=== PATIENT | male | born 2000 | race Caucasian/White ===

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

== ENCOUNTER 2020-11-30 18:32 | Emergency (ER) | payer SELFPAY ==
[~2020-11-30] VITALS: Ht 180.3 cm; Wt 90.7 kg
[~2020-11-30 18:32] MED LIST changes: -TRAM50TA2 PO; +TRM50T PO
--- NOTE | 2020-11-30 18:50 | ED Upper Extremity ---
General Chief Complaint: Upper Extremity Stated Complaint: R HAND PAIN/SWELLING Source: patient Exam Limitations: no limitations History of Present Illness Date Seen by Provider: Nov 30, 2020 Time Seen by Provider: 18:50 Initial Comments This is a well appearing 20 yo male who reports pain and swelling to the back of his right hand after getting it caught in a car door 4 days ago. States pain has persisted despite Tylenol/Ibuprofen. States he is still able to open and close his hand, but this elicits severe pain. No other injuries reported. Allergies and Home Medications Allergies Coded Allergies: No Known Drug Allergies (Unverified , 06/20/10) Home Medications Hydrocodone/Acetaminophen 1 Each Tablet, 1 EACH PO Q6H PRN for PAIN-SEVERE (8- 10) Prescribed by: RITA NAVARRETE on 11/30/201940 Patient Home Medication List Home Medication List Reviewed: Yes Review of Systems Constitutional: no symptoms reported EENTM: no symptoms reported Respiratory: no symptoms reported Cardiovascular: no symptoms reported Gastrointestinal: no symptoms reported Genitourinary: no symptoms reported Musculoskeletal: see HPI Skin: no symptoms reported Psychiatric/Neurological: No Symptoms Reported Past Wblnwkg-Pxebon-Dpjzja Hx Patient Social History Recent Hopitalizations: No Immunizations Up To Date PED Vaccines UTD: Yes Seasonal Allergies Seasonal Allergies: No Past Medical History Surgeries: No Respiratory: No Cardiac: No Neurological: No Reproductive Disorders: No Sexually Transmitted Disease: No HIV/AIDS: No Musculoskeletal: No Endocrine: No Cancer: No Psychosocial: No Integumentary: No Blood Disorders: No Family Medical History No Pertinent Family Hx Physical Exam Vital Signs Vital Signs - First Documented 11/30/20 18:35 Temp 38.3 Pulse 89 Resp 16 B/P (MAP) 147/91 (109) Pulse Ox 96 O2 Delivery Room Air Capillary Refill : Height, Weight, BMI Height: 5'9.00" Weight: 140lbs. oz. 63.953687gb; 14.06 BMI Method:Stated General Appearance: WD/WN, no apparent distress HEENT: PERRL/EOMI, normal ENT inspection Neck: full range of motion, normal inspection Cardiovascular: regular rate, rhythm, no murmur Respiratory: lungs clear, normal breath sounds Hand: normal inspection, bone tenderness (left MCP), soft tissue tenderness, swelling Neurologic/Tendon: normal sensation, normal motor functions, normal tendon functions, responds to pain Neurologic/Psychiatric: no motor/sensory deficits, alert, normal mood/affect, oriented x 3 Skin: normal color, warm/dry Progress/Results/Core Measures Results/Orders My Orders Orders - RITA NAVARRETE APRN Hand, Right, 3 Views (11/30/20 18:49) Forearm, Right, 2 Views (11/30/20 18:49) Hydrocodone/Apap 5/325 Tablet (Lortab 5 (11/30/20 19:30) Medications Given in ED Vital Signs/I&O Progress Progress Note : Progress Note Pt examined. No acute distress. Radiographs of left hand and forearm ordered. Xrays show non displaced fracture at the base of the left 5th metacarpal. Placed in velcro ulnar gutter splint. Neurovascular intact pre and post splint placement. Discussed having close follow up with ortho provider of choice. Phone numbers provided for local surgeons. He verbalized understanding. Orders placed for Lortab 5/325mg for pain. Diagnostic Imaging Diagonstic Imaging: Xray Plain Films/CT/US/NM/MRI: hand Comments NAME: JANUARY SINHA MED REC#: [id number] PT STATUS: REG ER : 2000 PHYSICIAN: RITA NAVARRETE APRN ADMIT DATE: 11/30/20/ER Signed Date of Exam:11/30/20 HAND, RIGHT, 3 VIEWS INDICATION: Slammed right hand in truck door. FINDINGS: 3 views of the right hand demonstrate mildly comminuted but nondisplaced fracture through the base of the 5th metacarpal. There is intra-articular extension. IMPRESSION: There is intra-articular extension of the fracture through the base of the right 5th metacarpal. Dictated by: Dictated on workstation # [id number] Dict: 11/30/201906 Trans: 11/30/201912 [facility] [id number] Interpreted by: DAGMAR STONE MD Electronically signed by: DAGMAR STONE MD 11/30/201912 Reviewed: Reviewed by Me Diagonstic Imaging: Xray Plain Films/CT/US/NM/MRI: forearm Comments NAME: JANUARY SINHA MED REC#: [id number] PT STATUS: REG ER : 2000 PHYSICIAN: RITA NAVARRETE PATIENT ACCOUNTING REPRESENTATIVE ADMIT DATE: 11/30/20/ER Signed Date of Exam:11/30/20 FOREARM, RIGHT, 2 VIEWS INDICATION: Slammed right hand in truck door, right forearm pain FINDINGS: Two views of the right forearm demonstrate normal ossification. No fracture is present. IMPRESSION: Normal right forearm. Dictated by: Dictated on workstation # [id number] Dict: 11/30/201905 Trans: 11/30/201912 [facility] [id number] Interpreted by: DAGMAR STONE MD Electronically signed by: DAGMAR STONE MD 11/30/201912 Departure Impression Primary Impression: Nondisplaced fracture of base of fifth metacarpal bone, right hand, initial encounter for closed fracture Disposition: HOME, SELF-CARE Condition: Improved Departure-Patient Inst. Decision time for Depature: 19:39 Referrals: [facility] (PCP/Family) Primary Care Physician Patient Instructions: Hand Fracture (DC) Add. Discharge Instructions: Plan: 1. Discharge home. 2. Rest, ice 20 minutes at a time every couple of hours for swelling and pain, use sal wrap over the next 3 days, and keep elevated above your heart as much as possible. The most swelling will occur over the next 48-72 hours. 3. May take Tylenol or Ibuprofen as needed for pain per package directions. Do not take more than directed. Use Hydrocodone as needed for breakthrough pain every 6 hours. 4. Follow up with Ortho provider of your choice. Local providers are Dr. Tejeda and Dr. Escobar. Call for appointment : [phone] All discharge instructions reviewed with patient and/or family. Voiced understanding. Scripts Hydrocodone/Acetaminophen (Hydrocodone-Acetamin 5-325 mg) 1 Each Tablet 1 EACH PO Q6H PRN for PAIN-SEVERE (8-10), #10 TAB 0 Refills Prov: RITA NAVARRETE PATIENT ACCOUNTING REPRESENTATIVE 11/30/20 Copy Copies To 1: JOAO TEJEDA MD, STORMY D PATIENT ACCOUNTING REPRESENTATIVE Nov 30, 2020 18:50
--- NOTE | 2020-11-30 19:09 | Diagnostic Imaging Report ---
INDICATION: Slammed right hand in truck door, right forearm pain FINDINGS: Two views of the right forearm demonstrate normal ossification. No fracture is present. IMPRESSION: Normal right forearm. Dictated by: Dictated on workstation # [id number]
--- NOTE | 2020-11-30 19:11 | Diagnostic Imaging Report ---
INDICATION: Slammed right hand in truck door. FINDINGS: 3 views of the right hand demonstrate mildly comminuted but nondisplaced fracture through the base of the 5th metacarpal. There is intra-articular extension. IMPRESSION: There is intra-articular extension of the fracture through the base of the right 5th metacarpal. Dictated by: Dictated on workstation # [id number]
[2020-11-30] MEDS ORDERED: HYDROcodone/APAP 5 MG/325 MG (LORTAB) TAB PO ONE (19:30)
[2020-11-30] MEDS ORDERED: ACHD5005 PO (19:41)
[2020-11-30 19:43] VITALS: BP 135/90
== END 2020-11-30 19:45 | disposition home or self-care (01) ==
LOC: EDUNIT# 18:32 → ER 18:35
DX: S62.346A Nondisplaced fracture of base of fifth metacarpal bone, right hand, initial encounter for closed fracture (principal); W23.1XXA Caught, crushed, jammed, or pinched between stationary objects, initial encounter
CPT/HCPCS: 73090; 73130

== ENCOUNTER 2021-03-15 13:15 | Emergency (ER) | payer SELFPAY ==
[~2021-03-15] VITALS: Ht 157.5 cm; Wt 83.9 kg
[~2021-03-15 13:15] MED LIST changes: +ACHD5005 PO
[2021-03-15 13:20] VITALS: BP 140/96
[2021-03-15] MEDS ORDERED: ACHD5005 PO (13:30)
[2021-03-15] MEDS ORDERED: NEOM10SO8 OT (13:30)
--- NOTE | 2021-03-15 13:30 | ED EENT ---
History of Present Illness General Chief Complaint: Ear Problems Stated Complaint: L EAR PAIN Source: patient Exam Limitations: no limitations History of Present Illness Date Seen by Provider: March 15, 2021 Time Seen by Provider: 13:25 Initial Comments Left earache for 48 hours. No cough no sore throat no other symptoms. Timing/Duration: abrupt Severity: moderate Location: ear (L) Associated Symptoms: denies symptoms Allergies and Home Medications Allergies Coded Allergies: No Known Drug Allergies (Unverified , 06/20/10) Home Medications Hydrocodone/Acetaminophen 1 Each Tablet, 1 EACH PO Q6H PRN for PAIN-SEVERE (8- 10) Prescribed by: RITA NAVARRETE on 11/30/201940 Patient Home Medication List Home Medication List Reviewed: Yes Review of Systems Review of Systems Constitutional: see HPI Eyes: No Symptoms Reported Ears: See HPI, Pain Nose: no symptoms reported Mouth: no symptoms reported Throat: no symptoms reported Respiratory: no symptoms reported Cardiovascular: no symptoms reported Musculoskeletal: no symptoms reported Skin: no symptoms reported Past Tqvzihd-Jrvasl-Xqzusi Hx Patient Social History 2nd Hand Smoke Exposure: No Recent Hopitalizations: No Immunizations Up To Date PED Vaccines UTD: Yes Seasonal Allergies Seasonal Allergies: No Past Medical History Surgeries: No Respiratory: No Cardiac: No Neurological: No Reproductive Disorders: No Sexually Transmitted Disease: No HIV/AIDS: No Genitourinary: No Gastrointestinal: No Musculoskeletal: No Endocrine: No HEENT: No Cancer: No Psychosocial: No Integumentary: No Blood Disorders: No Family Medical History No Pertinent Family Hx Physical Exam Height, Weight, BMI Height: 5'9.00" Weight: 140lbs. oz. 63.362113tc; 27.00 BMI Method:Stated General Appearance: WD/WN, no apparent distress Eyes: bilateral eye normal inspection, bilateral eye PERRL, bilateral eye EOMI Ears: right ear canal normal, right ear TM normal; left ear other (Left external ear canal is swollen and slightly erythematous. Unable to visualize the tympanic membrane. Very tender to touch.); bilateral ear auricle normal Mouth/Throat: normal mouth inspection, pharynx normal Neck: full range of motion Cardiovascular: regular rate, rhythm, no murmur Respiratory: no respiratory distress, no accessory muscle use Gastrointestinal: normal bowel sounds, non tender, soft Neurologic/Psychiatric: alert, normal mood/affect, oriented x 3 Skin: normal color, warm/dry Departure Impression Primary Impression: Otitis externa Disposition: 01 HOME, SELF-CARE Condition: Stable Departure-Patient Inst. Decision time for Depature: 13:26 [facility] ([facility]Family) Primary Care Physician Patient Instructions: Outer Ear Infection (DC) Add. Discharge Instructions: Pain medication as directed. Antibiotic drops to keep the ear dry. Follow-up with your doctor next week for recheck. All discharge instructions reviewed with patient and/or family. Voiced understanding. Scripts Naproxen (Naprosyn) 500 Mg Tablet 500 MG PO BID PRN for PAIN-SEVERE (8-10), #30 TAB 0 Refills Prov: MARVIN SANTOS APRN 03/15/21 Neomycin/Polymyxin B Sulf/Hc (Ykvesqmf-Zauzotipf-Gp Ear Soln) 10 Ml Solution 4 DROPS OT TID for 7 Days, #1 EA Prov: MARVIN SANTOS APRN 03/15/21 Hydrocodone/Acetaminophen (Hydrocodone-Acetamin 5-325 mg) 1 Each Tablet 1 TAB PO Q4H PRN for PAIN-MODERATE (5-7), #10 TAB Prov: MARVIN SANTOS APRN 03/15/21 MARVIN SANTOS APRN March 15, 2021 13:30
[2021-03-15] MEDS ORDERED: NAPR-1071 PO (13:32)
== END 2021-03-15 13:40 | disposition home or self-care (01) ==
LOC: EDUNIT# 13:15 → ER 13:17
DX: H60.92 Unspecified otitis externa, left ear (principal)
CPT/HCPCS: 99282

== ENCOUNTER → 2023-03-12 | Outpatient (CLI) | payer OTHER ==
[~2023-03-12] MED LIST changes: +AMOX500C2 PO; +NAPR-1071 PO; +NEOM10SO8 OT
--- NOTE | 2023-03-12 17:47 | Diagnostic Imaging Report ---
PROCEDURE: US Gallbladder. TECHNIQUE: Multiple real-time grayscale images were obtained over the right upper quadrant in various projections. INDICATION: Right upper quadrant pain with nausea and vomiting. Liver is normal in size at 15 cm. Portal vein is patent and shows normal direction of flow. No liver mass is detected. Gallbladder has questionable small stones near the neck of gallbladder. No wall thickening is identified. There is no biliary duct dilatation. Pancreas is unremarkable. Aorta and IVC are unremarkable. Right kidney is without calculi or hydronephrosis. There is no ascites. IMPRESSION: Probable cholelithiasis without evidence of acute cholecystitis. Dictated by: Dictated on workstation # [id number]
== END ==
LOC: RAD 09:20
PROVIDERS: ATTEND Nurse Practitioner
DX: R10.11 Right upper quadrant pain (principal)
CPT/HCPCS: 76705

== ENCOUNTER 2023-03-18 05:31 | Outpatient (CLI) | payer OTHER ==
[~2023-03-18] VITALS: Ht 170.1 cm; Wt 70.7 kg
[2023-03-18] MEDS ORDERED: PANT40TA52 PO (12:41)
[2023-03-20] MEDS ORDERED: ACHD5005 PO (10:21)
[2023-03-20] MEDS ORDERED: DOCU-143 PO (10:21)
== END 2023-03-18 12:48 | disposition home or self-care (01) ==
LOC: PREOP 05:31
PROVIDERS: ATTEND Surgery
DX: Z01.818 Encounter for other preprocedural examination (principal)

== ENCOUNTER 2023-03-20 07:53 | Day surgery (SDC) | payer OTHER ==
[~2023-03-20] VITALS: Ht 170.1 cm; Wt 70.7 kg
[2023-03-20] VITALS (11 sets, daily range): BP systolic 109–150; BP diastolic 73–90
[~2023-03-20 07:53] MED LIST changes: +PANT40TA52 PO
[2023-03-20] MEDS ORDERED: BUP/EPI 0.25% 1:200,000 (MARCAINE) 30 ML VIAL ONE (08:26)
[2023-03-20] MEDS ORDERED: CLINDAMYCIN 600 MG/50 ML IVPB 50 ML IV ONE (08:30)
[2023-03-20] MEDS ORDERED: SEVOFLURANE (ULTANE) 15 ML INHAL SOLN ONE ×2 (08:36→10:16)
[2023-03-20] MEDS ORDERED: ONDANSETRON 4 MG/2 ML (SDV) Z0FRAN ONE (08:36)
[2023-03-20] MEDS ORDERED: fentaNYL INJ 100 MCG/2 ML AMP ONE (08:36)
[2023-03-20] MEDS ORDERED: MIDAZOLAM 2 MG/2 ML (VERSED) VIAL ONE (08:36)
[2023-03-20] MEDS ORDERED: proPOfol 200 MG/20 ML (DIPRIVAN) VIAL IV ONE (08:36)
[2023-03-20] MEDS ORDERED: LIDOCAINE PF 2% 5 ML (XYLOCAINE) VIAL ONE (08:36)
--- NOTE | 2023-03-20 08:36 | Progress Note-Pre Operative ---
Pre-Operative Progress Note Date H&P Reviewed: March 20, 2023 Time H&P Reviewed: 08:35 History & Physical: H&P Reviewed, Patient Examed, No changes noted Pre-Operative Diagnosis: cholelithiasis, ruq abdominal pain. GIDEON FARAH DO March 20, 2023 08:36
[2023-03-20] MEDS: LACTATED RINGERS 1,000 ML IV PRN ×2 (09:15→10:40)
[2023-03-20] MEDS ORDERED: ROCURONIUM 50 MG/5 ML (ZEMURON) VIAL IV ONE (09:41)
[2023-03-20] MEDS ORDERED: BUP/EPI 0.25% 1:200,000 (MARCAINE) 30 ML VIAL INJ ONE (09:55)
[2023-03-20] MEDS ORDERED: IOHEXOL 300 MG/ML 30 ML (OMNIPAQUE 300) VIAL IV ONE (09:56)
[2023-03-20] MEDS ORDERED: HYDROmorphone 2 MG/ML VIAL (DILAUDID) ONE (10:04)
[2023-03-20] MEDS ORDERED: NEOSTIGMINE (BLOXIVERZ ) 1 MG/1ML 10 ML VIAL ONE (10:07)
[2023-03-20] MEDS ORDERED: GLYCOPYRROLATE 0.2 MG/ML (ROBINUL) 2 ML VIAL ONE (10:07)
[2023-03-20] MEDS ORDERED: KETOROLAC 30 MG/ML VIAL ONE (10:09)
[2023-03-20] MEDS ORDERED: ACHD5005 PO (10:21)
[2023-03-20] MEDS ORDERED: DOCU-143 PO (10:21)
--- NOTE | 2023-03-20 10:22 | Discharge Inst-Simple/Standard ---
Discharge Inst-Standard Discharge Medications New, Converted or Re-Newed RX: Transmitted to Pharmacy Patient Instructions/Follow Up Plan of Care/Instructions/FU: 2 weeks Tony Activity as Tolerated: No Discharge Diet: Regular Diet Other Inst to Patient Follow up Appt: Make appointment for 2 weeks. Instructions: No lifting greater than 10 pounds. No strenuous activity. May shower in 24 hours, no tub bath or soaking. Use incentive spirometer at home as directed. No Smoking Skin/Wound Care: You have special glue over incision, it will fall off on it's own. Symptoms to Report: Appetite Changes, Extremity Discoloration, Numbness/Tingling, Swelling Increased, Bleeding Excessive, Eyesight Changes, Pain Increased, Urine Color Change, Constipation(Persistent), Fever over 101 degree F, Pain/Pressure in chest, Urinating Difficulty, Cough Up/Vomit Blood, Heart Beat Irreg/Pounding, Pain/Pressure in jaw, Vaginal Bleeding Increase, Cramps in feet or legs, Lightheadedness, Pain/Pressure in shoulder, Diarrhea(Persistent), Memory Changes Suddenly, Questions/Concerns, Weight gain consecutive days, Dizziness/Fainting, Nausea/Vomiting, Shortness of Breath, Weight gain over 2 pounds. If eyes or skin turn yellow notify physician. If questions or concerns contact your physician Or seek help at emergency department. GIDEON FARAH DO March 20, 2023 10:22
--- NOTE | 2023-03-20 10:23 | Progress Note-Post Operative ---
Post-Operative Progess Note Surgeon (s)/Flying Teacher (s) Surgeon GIDEON FARAH DO Flying Teacher: Dr. Paul to assist in retraction dissection and closure. Pre-Operative Diagnosis cholelithiasis, ruq abdominal pain. Post-Operative Diagnosis same Procedure & Operative Findings Date of Procedure 03/20/23 Procedure Performed/Findings PROCEDURE: Laparoscopic cholecystectomy with intraoperative cholangiogram. COMPLICATIONS: None. PROCEDURE: The patient was taken to the operating suite and was prepped and draped in sterile fashion. A surgical pause was performed. Just superior to the umbilicus, a 12 mm incision was made. Dissection was taken down to the fascia, which was then scored and grasped with a Francisco J and the abdomen was then entered. A 0 Vicryl suture was placed in a horpuc-zp-aewix fashion and a Fair trocar was placed and secured. Pneumoperitoneum was achieved. A 5mm trochar place in the subxyphoid and 2 in the right upper quadrant. The gallbladder was then grasped and elevated. The cystic duct, and cystic artery were then dissected out. Clip was placed on the distal portion of the cystic duct which was then partially transected. An arrow catheter was inserted into the duct. The cholangiogram was then performed. No filing defects and contrast made its way into the duodenum. Catheter removed. Clips were placed on proximal portion of the cystic duct and then the duct was then transected. Clips were placed along the proximal and distal portion of the cystic artery which was then transected. Hook cautery was used to dissect the gallbladder from the gallbladder fossa achieving hemostasis. The gallbladder was placed in an Endobag and removed through the 12 mm trocar site. The abdomen was then reinspected. Copious amounts of irrigation were used to irrigate the abdomen and there were no signs of active bleeding. Hemostasis had been achieved. The 12 mm fascial defect was then closed with 0 Vicryl suture that had been placed in a fvyjxl-td-ypxnf fashion. The abdomen was then desufflated, the trocars were removed. The abdomen was then washed and dried. The skin was then closed using 4-0 Monocryl in a subcuticular fashion. The abdomen was washed and dried and Skin Affix was place over incisions. Patient tolerated the procedure well without any complications and was taken to the recovery room in stable condition. Anesthesia Type general Estimated Blood Loss Estimated blood loss (mL): minimal Specimens/Packing Specimens Removed gallbladder GIDEON FARAH DO March 20, 2023 10:23
[2023-03-20] MEDS ORDERED: fentaNYL INJ 100 MCG/2 ML AMP IVP ONE (10:45)
[2023-03-20] MEDS ORDERED: ONDANSETRON 4 MG/2 ML (SDV) Z0FRAN IVP PRN (10:45)
[2023-03-20] MEDS ORDERED: HYDROmorphone 2 MG/ML VIAL (DILAUDID) IV ONE (10:45)
[2023-03-20] MEDS ORDERED: HYDROcodone/APAP 5 MG/325 MG (LORTAB) TAB ONE (11:44)
[2023-03-20] MEDS ORDERED: HYDROcodone/APAP 5 MG/325 MG (LORTAB) TAB PO ONE (11:45)
--- NOTE | 2023-03-20 14:02 | Anesthesia-General Post-Op ---
General Patient Condition Mental Status/LOC: Same as Preop Cardiovascular: Satisfactory Nausea/Vomiting: Absent Respiratory: Satisfactory Pain: Controlled Complications: Absent Post Op Complications Complications None Follow Up Care/Instructions Patient Instructions None needed. Anesthesia/Patient Condition Patient Condition Patient is doing well, no complaints, stable vital signs, no apparent adverse anesthesia problems. No complications reported per nursing. D/C home per [facility] Criteria: Yes LESLIE WELSH CRNA March 20, 2023 14:02
--- NOTE | 2023-03-20 19:15 | Diagnostic Imaging Report ---
INDICATION: Cholecystectomy Operative cholangiogram is performed in a routine fashion with injection via the cystic duct stump in surgery. 21 images were obtained, 5.7 seconds of fluoroscopy time was used. The biliary tree was nondilated. There are no filling defects in the biliary tree. Contrast passes to the duodenum without obstruction. There is reflux of contrast into the pancreatic duct. IMPRESSION: Unremarkable operative cholangiogram. Dictated by: Dictated on workstation # [id number]
[2023-03-21] MEDS ORDERED: ONDA4TAB11 PO (09:47)
== END 2023-03-20 13:40 | disposition home or self-care (01) ==
LOC: SDC 07:53
PROVIDERS: ATTEND Surgery
DX: K81.1 Chronic cholecystitis (principal); F17.210 Nicotine dependence, cigarettes, uncomplicated; Z28.310 Unvaccinated for COVID-19
CPT/HCPCS: 76000; 87081

== ENCOUNTER 2023-03-21 07:15 | Emergency (ER) | payer OTHER ==
[~2023-03-21] VITALS: Ht 170 cm; Wt 68.0 kg
[~2023-03-21 07:15] MED LIST changes: +DOCU-143 PO
[2023-03-21 07:25] VITALS: BP 132/81
[2023-03-21] MEDS ORDERED: LACTATED RINGERS 1,000 ML IV STA (07:54)
[2023-03-21] MEDS ORDERED: ONDANSETRON 4 MG/2 ML (SDV) Z0FRAN IVP ONE (08:00)
[2023-03-21 08:01] LABS: BASOPHILS % (AUTO) 0 % (0-10); EOSINOPHILS % (AUTO) 0 % (0-10); HEMATOCRIT 44 % (40-54); HEMOGLOBIN 15.7 g/dL (13.3-17.7); LYMPHOCYTES # (AUTO) 2.4 10^3/uL (1.0-4.0); LYMPHOCYTES % (AUTO) 15 % (12-44); MEAN CORPUSCULAR HEMOGLOBIN 29 pg (25-34); MEAN CORPUSCULAR HGB CONC 36 g/dL (32-36); MEAN CORPUSCULAR VOLUME 82 fL (80-99); MONOCYTES # (AUTO) 1.1 10^3/uL (0.0-1.0); MONOCYTES % (AUTO) 7 % (0-12); NEUTROPHILS # (AUTO) 12.1 10^3/uL (1.8-7.8); NEUTROPHILS % (AUTO) 77 % (42-75); PLATELET COUNT 315 10^3/uL (130-400); WHITE BLOOD COUNT 15.8 10^3/uL (4.3-11.0)
[2023-03-21] MEDS ORDERED: fentaNYL INJ 100 MCG/2 ML AMP IVP STA ×2 (08:11→09:35)
--- NOTE | 2023-03-21 08:13 | ED Abdominal Pain ---
General Chief Complaint: Abdominal/GI Problems Stated Complaint: GALL BLADDER POST OP | VOMITING | ABD PAIN Nursing Triage Note: ARRIVED VIA AMB TO ROOM 08. LAP ADITHYA YESTERDAY BY DR FARAH. PT STATES HE CAN'T STOP VOMITING. Source of Information: Patient Exam Limitations: No Limitations History of Present Illness Date Seen by Provider: March 21, 2023 Time Seen by Provider: 08:00 Initial Comments Here with intractable nausea and vomiting since 6 PM yesterday. Had laparoscopic cholecystectomy yesterday by Dr. Farah. Went home at 3 PM and started vomiting at 6 PM. He has been unable to take his pain medication and so also has upper abdominal pain. Does report burning in his throat and acid feeling with his vomit. He has been unable to really keep anything down. Had gallbladder surgery due to gallstones apparently. Timing/Duration: 12 Hours Severity/Quality: Moderate, Burning Location: Epigastric Radiation: Other (Esophageal) Activities at Onset: None Modifying Factors: Worsens With Exercise Associated Symptoms: No Fever/Chills; Nausea/Vomiting Allergies and Home Medications Allergies Coded Allergies: Penicillins (Verified Allergy, Unknown, YOUNG KID, 03/18/23) Patient Home Medication List Home Medication List Reviewed: Yes Docusate Sodium (Colace) 100 Mg Capsule, 100 MG PO DAILY Prescribed by: GIDEON FARAH on 03/20/23 1021 Hydrocodone/Acetaminophen (Hydrocodone-Acetamin 5-325 mg) 5 Mg-325 Mg Tablet, 1 EACH PO Q4H PRN for PAIN-MODERATE (5-7) Prescribed by: GIDEON FARAH on 03/20/23 1022 Ondansetron (Ondansetron Odt) 4 Mg Tab.rapdis, 4 MG PO Q6H PRN for NAUSEA/VOMITING Prescribed by: LUTHER EMMANUEL on 03/21/23 0947 Pantoprazole Sodium (Pantoprazole Sodium) 40 Mg Tablet., 40 MG PO DAILY, (R eported) Entered as Reported by: ANITRA BAKER on 03/18/23 1241 Discontinued Medications Amoxicillin (Amoxicillin) 500 Mg Capsule, 1,000 MG PO BID Discontinued Reason: No Longer Taking Prescribed by: STACY SARMIENTO on 02/15/22 2210 Review of Systems Review of Systems Constitutional: see HPI; No chills, No fever EENTM: No Symptoms Reported Respiratory: Denies Cough Cardiovascular: No Symptoms Reported Gastrointestinal: Abdominal Pain, Nausea, Vomiting Genitourinary: No Symptoms Reported Musculoskeletal: No back pain Skin: other (Postoperative skin wounds to the abdomen) Past Aduzbib-Zxtull-Edhyng Hx Patient Social History Tobacco Use?: Yes Smoking Status: Current Everyday Smoker Substance use?: No Alcohol Use?: Yes Immunizations Up To Date Tetanus Booster (TDap): Unknown PED Vaccines UTD: Yes First/Initial COVID19 Vaccinat: NO Seasonal Allergies Seasonal Allergies: No Past Medical History Surgery/Hospitalization HX: right hand fx. Surgeries: No Respiratory: No Currently Using CPAP: No Currently Using BIPAP: No Cardiac: No Neurological: No Reproductive Disorders: No Sexually Transmitted Disease: No HIV/AIDS: No Genitourinary: No Gastrointestinal: Yes Gastroesophageal Reflux, Gall Bladder Disease Musculoskeletal: No Endocrine: No HEENT: No Cancer: No Psychosocial: No Integumentary: No Blood Disorders: No Family Medical History Reviewed Nursing Family Hx No Pertinent Family Hx Physical Exam Vital Signs Vital Signs - First Documented 03/21/23 07:25 Temp 36.3 Pulse 82 Resp 16 B/P (MAP) 132/81 (98) Pulse Ox 98 O2 Delivery Room Air Capillary Refill : Less Than 3 Seconds Height/Weight/BMI Height: 5'9.00" Weight: 140lbs. oz. 63.850537kp; 23.00 BMI Method:Stated General Appearance: WD/WN, no apparent distress HEENT: PERRL/EOMI, pharynx normal Neck: full range of motion, supple Respiratory: lungs clear, normal breath sounds Cardiovascular: regular rate, rhythm, no murmur Gastrointestinal: soft, tenderness (Epigastric), other (Postoperative wounds are covered with glue and otherwise clean, dry and intact without signs of infection or drainage) Extremities: normal range of motion, non-tender Neurologic/Psychiatric: alert, oriented x 3 Skin: warm/dry, other (Wounds as above) Progress/Results/Core Measures Results/Orders Lab Results Laboratory Tests Test 03/21/23 07:51 Range/Units White Blood Count 15.8 H 4.3-11.0 10^3/uL Red Blood Count 5.35 4.30-5.52 10^6/uL Hemoglobin 15.7 13.3-17.7 g/dL Hematocrit 44 40-54 % Mean Corpuscular Volume 82 80-99 fL Mean Corpuscular Hemoglobin 29 25-34 pg Mean Corpuscular Hemoglobin Concent 36 32-36 g/dL Red Cell Distribution Width 13.1 10.0-14.5 % Platelet Count 315 130-400 10^3/uL Mean Platelet Volume 9.0 9.0-12.2 fL Immature Granulocyte % (Auto) 0 % Neutrophils (%) (Auto) 77 H 42-75 % Lymphocytes (%) (Auto) 15 12-44 % Monocytes (%) (Auto) 7 0-12 % Eosinophils (%) (Auto) 0 0-10 % Basophils (%) (Auto) 0 0-10 % Neutrophils # (Auto) 12.1 H 1.8-7.8 10^3/uL Lymphocytes # (Auto) 2.4 1.0-4.0 10^3/uL Monocytes # (Auto) 1.1 H 0.0-1.0 10^3/uL Eosinophils # (Auto) 0.0 0.0-0.3 10^3/uL Basophils # (Auto) 0.0 0.0-0.1 10^3/uL Immature Granulocyte # (Auto) 0.0 0.0-0.1 10^3/uL Neutrophils % (Manual) 76 % Lymphocytes % (Manual) 18 % Monocytes % (Manual) 6 % Blood Morphology Comment NORMAL Sodium Level 139 135-145 MMOL/L Potassium Level 3.5 L 3.6-5.0 MMOL/L Chloride Level 104 98-107 MMOL/L Carbon Dioxide Level 22 21-32 MMOL/L Anion Gap 13 5-14 MMOL/L Blood Urea Nitrogen 14 7-18 MG/DL Creatinine 0.77 0.60-1.30 MG/DL Estimat Glomerular Filtration Rate 128 BUN/Creatinine Ratio 18 Glucose Level 109 H 70-105 MG/DL Calcium Level 9.7 8.5-10.1 MG/DL Corrected Calcium 8.5-10.1 MG/DL Total Bilirubin 2.0 H 0.1-1.0 MG/DL Aspartate Amino Transf (AST/SGOT) 23 5-34 U/L Alanine Aminotransferase (ALT/SGPT) 35 0-55 U/L Alkaline Phosphatase 74 40-136 U/L Total Protein 7.4 6.4-8.2 GM/DL Albumin 4.7 H 3.2-4.5 GM/DL My Orders Orders - KARUK,LUTHER D MD Ondansetron Injection (Zofran Injectio (03/21/23 08:00) Lactated Ringers (Lr 1000 Ml Iv Solution (03/21/23 07:54) Ed Iv/Invasive Line Start (03/21/23 07:54) Cbc With Automated Diff (03/21/23 07:54) Comprehensive Metabolic Panel (03/21/23 07:54) Manual Differential (03/21/23 07:51) Fentanyl Inj (Sublimaze Injection) (03/21/23 08:11) Pantoprazole Injection (Protonix Injecti (03/21/23 08:15) Fentanyl Inj (Sublimaze Injection) (03/21/23 09:35) Famotidine Tablet (Pepcid Tablet) (03/21/23 09:44) Hydromorphone Injection (Dilaudid Inject (03/21/23 10:45) Medications Given in ED Current Medications Medications Dose Ordered Sig/Beth Route Start Time Stop Time Status Last Admin Dose Admin Ondansetron HCl 8 mg ONCE ONCE IVP 03/21/23 08:00 03/21/23 08:01 DC 03/21/23 08:02 8 MG Pantoprazole 40 mg ONCE ONCE IV 03/21/23 08:15 03/21/23 08:16 DC 03/21/23 08:30 40 MG Vital Signs/I&O 03/21/23 07:25 Temp 36.3 Pulse 82 Resp 16 B/P (MAP) 132/81 (98) Pulse Ox 98 O2 Delivery Room Air Blood Pressure Mean: 98 Progress Progress Note : Progress Note Seen and evaluated. IV, labs including CBC and CMP ordered. LR 1 L bolus, Zofran 8 mg IV, Protonix 40 mg IV and fentanyl 50 mcg IV ordered. Monitor patient. Differential diagnosis includes postop nausea and vomiting, reflux disease, electrolyte abnormality, dehydration 0945: Labs reviewed. CBC does show elevated white count and CMP does show elevated total bilirubin but I think both are related to recent surgery and the vomiting. Otherwise no significant abnormality in either. I did discuss the case with Dr. Farah, patient's surgeon who did the surgery yesterday. We have reviewed current findings and situation. He is comfortable with current findings. Patient will be discharged home with prescription for ondansetron. I we will also recommend woxl-mqf-ixhjyxq famotidine for stomach burning. He can follow-up with Dr. Farah tomorrow in clinic if needed. Discharged home with return precautions. Patient and family verbalized understanding of instructions and agreement with plan. 1043: I did order Dilaudid 0.5 mg IV. Patient feels better and feels like he can try at home. Discharged home with return precautions. Patient and family verbalized understanding instructions and agreement with plan. Departure Impression Primary Impression: Postoperative nausea and vomiting Additional Impression: Postoperative abdominal pain Disposition: HOME, SELF-CARE Condition: Stable Departure-Patient Inst. Decision time for Depature: 10:45 Referrals: [facility] ([place]) Primary Care Physician Patient Instructions: Nausea and Vomiting, Adult ED, Postoperative Pain (DC) Add. Discharge Instructions: All discharge instructions reviewed with patient and/or family. Voiced unders tanding. Take home medications as previously prescribed including the pantoprazole. You may also consider zwok-nyz-pqrcetb Pepcid or the generic famotidine, 20 mg once or twice daily to reduce stomach acid and stomach upset. Take new medications as prescribed for nausea. Clear liquid diet for the next 24 hours and then advance as tolerated. You may follow-up with Dr. Farah in clinic tomorrow if you are not having improvement and return here if you are having worse pain, fever, persistent vomiting, weakness or other concerns as needed. Scripts Ondansetron (Ondansetron Odt) 4 Mg Tab.rapdis 4 MG PO Q6H PRN for NAUSEA/VOMITING, #12 TAB 0 Refills Prov: LUTHER EMMANUEL MD 03/21/23 Work/School Note: Family Work Note Patient Received Medical Care In the Emergency Department On: March 21, 2023 Patient Will Be Able to Return to Work/School On: March 23, 2023 Patient Restrictions: Please excuse Bernice from work to be home with family member needing care. Copy Copies To 1: GIDEON FARAH TIMOTHY D MD March 21, 2023 08:13
[2023-03-21 08:14] LABS: ALBUMIN 4.7 GM/DL (3.2-4.5); CHLORIDE 104 MMOL/L (98-107); POTASSIUM 3.5 MMOL/L (3.6-5.0); SODIUM 139 MMOL/L (135-145)
[2023-03-21 08:15] LABS: CALCIUM 9.7 MG/DL (8.5-10.1)
[2023-03-21] MEDS ORDERED: PANTOPRAZOLE 40 MG (PROTONIX) VIAL IV ONE (08:15)
[2023-03-21 08:16] LABS: GLUCOSE 109 MG/DL (70-105); TOTAL PROTEIN 7.4 GM/DL (6.4-8.2)
[2023-03-21 08:17] LABS: CARBON DIOXIDE 22 MMOL/L (21-32)
[2023-03-21 08:20] LABS: ALKALINE PHOSPHATASE 74 U/L (40-136); CREATININE SERUM 0.77 MG/DL (0.60-1.30); GFR ESTIMATED 128
[2023-03-21 08:21] LABS: BUN/CREATININE RATIO 18
[2023-03-21 08:23] LABS: ALANINE AMINOTRANSFERASE 35 U/L (0-55)
[2023-03-21 08:41] LABS: LYMPHOCYTES % (MANUAL) 18 %; MONOCYTES % (MANUAL) 6 %; NEUTROPHILS % (MANUAL) 76 %; RBC MORPH NORMAL
[2023-03-21] MEDS ORDERED: FAMOTIDINE 20 MG (PEPCID) TABLET PO STA (09:44)
[2023-03-21] MEDS ORDERED: ONDA4TAB11 PO (09:47)
[2023-03-21] MEDS ORDERED: HYDROmorphone 2 MG/ML VIAL (DILAUDID) IV ONE (10:45)
== END 2023-03-21 11:00 | disposition home or self-care (01) ==
LOC: EDUNIT# 07:15 → ER 07:17
DX: K91.0 Vomiting following gastrointestinal surgery (principal); G89.18 Other acute postprocedural pain; R10.13 Epigastric pain; D72.829 Elevated white blood cell count, unspecified; E80.7 Disorder of bilirubin metabolism, unspecified; F17.200 Nicotine dependence, unspecified, uncomplicated; Z28.310 Unvaccinated for COVID-19; Z87.19 Personal history of other diseases of the digestive system; Z90.49 Acquired absence of other specified parts of digestive tract
CPT/HCPCS: 36415; 80053; 85007; 85027

== ENCOUNTER 2023-04-24 06:42 | Outpatient (CLI) | payer OTHER ==
[~2023-04-24] VITALS: Ht 170.2 cm; Wt 64.1 kg
[~2023-04-24 06:42] MED LIST changes: +ONDA4TAB11 PO
== END 2023-04-24 11:04 | disposition home or self-care (01) ==
LOC: PREOP 06:42
PROVIDERS: ATTEND Surgery
DX: Z01.818 Encounter for other preprocedural examination (principal)

== ENCOUNTER 2023-04-30 10:04 | Day surgery (SDC) | payer OTHER ==
[~2023-04-30] VITALS: Ht 170 cm; Wt 64.1 kg
[2023-04-30] MEDS ORDERED: LACTATED RINGERS 1,000 ML IV STA (10:16)
[2023-04-30] MEDS ORDERED: HURRICAINE EXT TUBE (BENZOCAINE) XX PRN (10:30)
[2023-04-30 10:40] VITALS: BP 108/65
--- NOTE | 2023-04-30 11:11 | Progress Note-Pre Operative ---
Pre-Operative Progress Note Date H&P Reviewed: Apr 30, 2023 Time H&P Reviewed: 11:11 History & Physical: H&P Reviewed, Patient Examed, No changes noted Pre-Operative Diagnosis: chronic gastritis GIDEON FARAH DO Apr 30, 2023 11:11
[2023-04-30] MEDS ORDERED: MIDAZOLAM 2 MG/2 ML (VERSED) VIAL ONE (11:44)
[2023-04-30] MEDS ORDERED: PROPOFOL INJECTION 50 ML IV ONE (11:44)
[2023-04-30 12:05] VITALS: BP 93/52
[2023-04-30] MEDS ORDERED: SUCR1TAB36 PO (12:05)
--- NOTE | 2023-04-30 12:05 | Progress Note-Post Operative ---
Post-Operative Progess Note Surgeon (s)/Process Tech (s) Surgeon GIDEON FARAH DO Process Tech: na Pre-Operative Diagnosis chronic gastritis Post-Operative Diagnosis same Procedure & Operative Findings Date of Procedure 04/30/23 Procedure Performed/Findings egd c biopsies Anesthesia Type per tip banding machine operator Estimated Blood Loss Estimated blood loss (mL): scant Specimens/Packing Specimens Removed antrum. body, ge GIDEON FARAH DO Apr 30, 2023 12:05
--- NOTE | 2023-04-30 12:06 | Discharge Inst-Simple/Standard ---
Discharge Inst-Standard Patient Instructions/Follow Up Plan of Care/Instructions/FU: 2 weeks nyasia Activity as Tolerated: Yes Discharge Diet: Regular Diet GIDEON FARAH DO Apr 30, 2023 12:06
[2023-04-30 12:10] VITALS: BP 104/58
[2023-04-30 12:20] VITALS: BP 119/62
[2023-04-30 12:31] VITALS: BP 119/62
--- NOTE | 2023-04-30 14:04 | Anesthesia-General Post-Op ---
MAC Patient Condition Mental Status/LOC: Same as Preop Cardiovascular: Satisfactory Nausea/Vomiting: Absent Respiratory: Satisfactory Pain: Controlled Complications: Absent Post Op Complications Complications None Follow Up Care/Instructions Patient Instructions None needed. Anesthesiology Discharge Order Discharge Order Patient is doing well, no complaints, stable vital signs, no apparent adverse anesthesia problems. No complications reported per nursing. ARELI PALM CRNA Apr 30, 2023 14:04
--- NOTE | 2023-04-30 18:13 | OPERATIVE REPORT ---
DATE OF SERVICE: 04/30/2023 PREOPERATIVE DIAGNOSIS: Chronic gastritis. POSTOPERATIVE DIAGNOSIS: Chronic gastritis. PROCEDURES: EGD with biopsies. SURGEON: Gideon Jimenez DO ANESTHESIA: Per YOUTH NUTRITIONAL MONITOR. ESTIMATED BLOOD LOSS: Scant. COMPLICATIONS: None. INDICATIONS: The patient is a 23-year-old male with chronic gastritis and still with symptoms of GERD. He understands risks and benefits of procedure and wished to proceed. Consent was signed in chart. DESCRIPTION OF PROCEDURE: The patient was taken to endoscopy suite, placed in left lateral recumbent position. Timeout was performed. Scope was inserted in the mouth, down the esophagus, stomach, into the duodenum without difficulty. No polyps, masses or ulcerations within the duodenum. Scope was slowly retracted back into stomach where it was further insufflated. No polyps, masses or ulcerations. Slight erythematous changes and changes suggestive of chronic gastritis throughout the stomach. Biopsy of the antrum was obtained. Scope was retroflexed noting no other pathology except for chronic changes. Biopsy of the body was obtained. Scope was then returned to its normal position, slowly withdrawn until distal esophagus. Biopsy of GE junction was obtained. No polyps, masses or ulcerations. Scope was slowly retracted back until completely removed. The patient tolerated the procedure well without complications, taken to recovery room in stable condition. RECOMMENDATIONS: The patient will follow up in 2 weeks to discuss pathology results. We add Carafate 1 gram 4 times a day. We will continue on Protonix. Further recommendation pending biopsy results. Job ID: [id number] DocumentID: [id number] Dictated Date: 04/30/2023 12:08:35 Medical Receptionist Assistant Date: 04/30/2023 18:11:00 Dictated By: GIDEON JIMENEZ DO
== END 2023-04-30 12:59 | disposition home or self-care (01) ==
LOC: ENDO 10:04
PROVIDERS: ATTEND Surgery
DX: K29.50 Unspecified chronic gastritis without bleeding (principal); F17.210 Nicotine dependence, cigarettes, uncomplicated; Z79.899 Other long term (current) drug therapy; Z28.310 Unvaccinated for COVID-19